=== PATIENT | female | born 1945 | race Caucasian/White ===

== ENCOUNTER 2017-09-14 09:36 | Emergency (ER) | payer MEDICARE, OTHER ==
[~2017-09-14] VITALS: Ht 165.1 cm; Wt 84.8 kg
[2017-09-14] MEDS ORDERED: METO-395 (09:57)
[2017-09-14] MEDS ORDERED: METF-478 (09:57)
[2017-09-14] MEDS ORDERED: SIMV20TA3 (09:57)
[2017-09-14 10:17] LABS: BASOPHILS % (AUTO) 0 % (0-10); EOSINOPHILS % (AUTO) 0 % (0-10); HEMATOCRIT 36 % (35-52); HEMOGLOBIN 11.6 G/DL (11.5-16.0); LYMPHOCYTES # (AUTO) 1.6 X 10^3 (1.0-4.0); LYMPHOCYTES % (AUTO) 24 % (12-44); MEAN CORPUSCULAR HEMOGLOBIN 28 PG (25-34); MEAN CORPUSCULAR HGB CONC 32 G/DL (32-36); MEAN CORPUSCULAR VOLUME 86 FL (80-99); MONOCYTES # (AUTO) 0.4 X 10^3 (0.0-1.0); MONOCYTES % (AUTO) 6 % (0-12); NEUTROPHILS # (AUTO) 4.6 X 10^3 (1.8-7.8); NEUTROPHILS % (AUTO) 70 % (42-75); PLATELET COUNT 216 10^3/uL (130-400); RED BLOOD COUNT 4.19 10^6/uL (4.35-5.85); RED CELL DISTRIBUTION WIDTH 14.6 % (10.0-14.5); WHITE BLOOD COUNT 6.6 10^3/uL (4.3-11.0)
[2017-09-14 10:22] LABS: PROTHROMBIN TIME PATIENT 13.3 SEC (12.2-14.7)
--- NOTE | 2017-09-14 10:25 | Diagnostic Imaging Report ---
EXAMINATION: Chest radiograph, portable AP view. DATE: 09/14/2017 at 1014 hours. INDICATION: 71-year-old female, chest pain. COMPARISON: None. FINDINGS: Heart size and mediastinal contours are unremarkable. There is no identified pneumothorax. There is no large pleural effusion. There is obscuration of visualization of left hemidiaphragm which potentially may relate to soft tissue overlap although left basilar airspace consolidation and/or small left pleural effusion would be difficult to exclude. Comparisons are not available to assess for potential stability. There is no otherwise noted potential focal airspace consolidation. IMPRESSION: 1. Obscuration of visualization of the left hemidiaphragm which potentially may relate to soft tissue overlap although left basilar airspace consolidation and/or small left effusion is difficult to exclude. Dedicated lateral view may be helpful for further assessment as needed. 2. No otherwise identified potential acute cardiopulmonary abnormality. Dictated by: Dictated on workstation # [id number]
[2017-09-14 10:31] LABS: ALANINE AMINOTRANSFERASE 11 U/L (0-55); ALBUMIN 4.1 GM/DL (3.2-4.5); ALKALINE PHOSPHATASE 77 U/L (40-136); BILIRUBIN,TOTAL 0.4 MG/DL (0.1-1.0); BUN/CREATININE RATIO 23; CALCIUM 9.2 MG/DL (8.5-10.1); CARBON DIOXIDE 24 MMOL/L (21-32); CHLORIDE 106 MMOL/L (98-107); CREATININE SERUM 0.79 MG/DL (0.60-1.30); GFR ESTIMATED > 60; GLUCOSE 193 MG/DL (70-105); MAGNESIUM 1.6 MG/DL (1.8-2.4); SODIUM 140 MMOL/L (135-145); TOTAL PROTEIN 6.6 GM/DL (6.4-8.2)
[2017-09-14] MEDS ORDERED: ANTACID SUSP 30 ML UDC (MYLANTA) ONE (10:31)
[2017-09-14] MEDS ORDERED: LIDOCAINE 2% VISCOUS 15 ML UDC ONE (10:31)
[2017-09-14 10:38] LABS: MYOGLOBIN SERUM 28.1 NG/ML (10.0-92.0)
--- NOTE | 2017-09-14 10:39 | ED Chest Pain ---
General Chief Complaint: Chest Wall/Rib Pain Stated Complaint: DIFF SWALLOWING/PAIN IN CHEST Nursing Triage Note: TO ROOM REPORTS TOOK AM MEDS ONSET OF PAIN WHEN SWALLOWING. WITH ONSET OF PAIN IN CHEST HEARD TIME DRINKING WATER. Nursing Sepsis Screen: No Definite Risk Source: patient, family Exam Limitations: no limitations History of Present Illness Date Seen by Provider: Sep 14, 2017 Time Seen by Provider: 10:36 Initial Comments This 71-year-old white female presents with an episode of chest pain that began this morning after she took her morning medications and I became stuck in her upper esophagus. Patient was complaining of severe sharp pain which radiated to both shoulders. The patient's pain has gradually diminished. The patient has had similar episodes in the past. She has required esophageal dilatation for esophageal stricture in the past. Patient saw a clothing man last week into [facility] where she lives. The evaluation demonstrated no evidence of cardiac disease or concern on the part of the clothing man. The patient denies hematemesis. She denies black or tarry stools. Allergies and Home Medications Allergies Coded Allergies: Penicillins (Verified Allergy, Unknown, 09/14/17) codeine (Verified Allergy, Unknown, 09/14/17) propoxyphene (Verified Allergy, Unknown, 09/14/17) Patient Home Medication List Home Medication List Reviewed: Yes Review of Systems Constitutional: No chills, No fever EENTM: No Symptoms Reported Respiratory: No Symptoms Reported Cardiovascular: See HPI, Chest Pain; Denies Irregular Heart Rate, Denies Palpitations Gastrointestinal: See HPI; Denies Abdomen Distended, Denies Diarrhea, Denies Vomiting; Other (patient has had super epigastric pain with her episode this morning.) Genitourinary: No Symptoms Reported Musculoskeletal: no symptoms reported Skin: no symptoms reported Psychiatric/Neurological: No Symptoms Reported Endocrine: No Symptoms Reported Hematologic/Lymphatic: No Symptoms Reported Past Xaxrtxn-Gcrqxm-Lijirq Hx Past Med/Social Hx: Reviewed Nursing Past Med/Soc Hx Patient Social History Alcohol Use: Occasionally Uses Recreational Drug Use: No Smoking Status: Never a Smoker Recent Foreign Travel: No Contact w/Someone Who Travel: No Recent Infectious Disease Expo: No Past Medical History Surgeries: No Respiratory: No Cardiac: Yes High Cholesterol, Hypertension, Irregular Heartbeat Neurological: No Gastrointestinal: Yes Gastroesophageal Reflux Endocrine: Yes Diabetes, Non-Insulin dep Psychosocial: No Physical Exam Vital Signs Vital Signs - First Documented 09/14/17 09:36 Temp 98.0 Pulse 82 Resp 18 B/P (MAP) 154/80 (104) O2 Delivery Room Air Capillary Refill : Less Than 3 Seconds General Appearance: No Apparent Distress, WD/WN HEENT: Normal ENT Inspection Neck: Full Range of Motion, Supple Respiratory: Chest Non Tender, Lungs Clear Cardiovascular: Regular Rate, Rhythm, No Murmur Gastrointestinal: Normal Bowel Sounds, Non Tender, Soft Neurologic/Psychiatric: Alert, Oriented x3, No Motor/Sensory Deficits, Normal Mood/Affect Skin: Normal Color, Warm/Dry Progress/Results/Core Measures Results/Orders Lab Results Laboratory Tests Test 09/14/17 09:47 Range/Units White Blood Count 6.6 4.3-11.0 10^3/uL Red Blood Count 4.19 L 4.35-5.85 10^6/uL Hemoglobin 11.6 11.5-16.0 G/DL Hematocrit 36 35-52 % Mean Corpuscular Volume 86 80-99 FL Mean Corpuscular Hemoglobin 28 25-34 PG Mean Corpuscular Hemoglobin Concent 32 32-36 G/DL Red Cell Distribution Width 14.6 H 10.0-14.5 % Platelet Count 216 130-400 10^3/uL Mean Platelet Volume 10.0 7.4-10.4 FL Neutrophils (%) (Auto) 70 42-75 % Lymphocytes (%) (Auto) 24 12-44 % Monocytes (%) (Auto) 6 0-12 % Eosinophils (%) (Auto) 0 0-10 % Basophils (%) (Auto) 0 0-10 % Neutrophils # (Auto) 4.6 1.8-7.8 X 10^3 Lymphocytes # (Auto) 1.6 1.0-4.0 X 10^3 Monocytes # (Auto) 0.4 0.0-1.0 X 10^3 Eosinophils # (Auto) 0.0 0.0-0.3 10^3/uL Basophils # (Auto) 0.0 0.0-0.1 10^3/uL Prothrombin Time 13.3 12.2-14.7 SEC INR Comment 1.0 0.8-1.4 Activated Partial Thromboplast Time 25 24-35 SEC Sodium Level 140 135-145 MMOL/L Potassium Level 4.0 3.6-5.0 MMOL/L Chloride Level 106 98-107 MMOL/L Carbon Dioxide Level 24 21-32 MMOL/L Anion Gap 10 5-14 MMOL/L Blood Urea Nitrogen 18 7-18 MG/DL Creatinine 0.79 0.60-1.30 MG/DL Estimat Glomerular Filtration Rate > 60 BUN/Creatinine Ratio 23 Glucose Level 193 H 70-105 MG/DL Calcium Level 9.2 8.5-10.1 MG/DL Magnesium Level 1.6 L 1.8-2.4 MG/DL Total Bilirubin 0.4 0.1-1.0 MG/DL Aspartate Amino Transf (AST/SGOT) 10 5-34 U/L Alanine Aminotransferase (ALT/SGPT) 11 0-55 U/L Alkaline Phosphatase 77 40-136 U/L Myoglobin 28.1 10.0-92.0 NG/ML Troponin I < 0.30 <0.30 NG/ML Total Protein 6.6 6.4-8.2 GM/DL Albumin 4.1 3.2-4.5 GM/DL My Orders Orders - ONOFRE, DOMINICK Blackwell MD Cbc With Automated Diff (09/14/17 09:58) Magnesium (09/14/17 09:58) Chest 1 View, Ap/Pa Only (09/14/17 09:58) Ekg Tracing (09/14/17 09:58) Cardiac Profile 1 (09/14/17 09:58) Comprehensive Metabolic Panel (09/14/17 09:58) Myoglobin Serum (09/14/17 09:58) Protime With Inr (09/14/17 09:58) Partial Thromboplastin Time (09/14/17 09:58) O2 (09/14/17 09:58) Monitor-Rhythm Ecg Trace Only (09/14/17 09:58) Saline Lock/Iv-Start (09/14/17 09:58) Antacid Suspension (Mylanta Suspension (09/14/17 10:31) Lidocaine 2% Viscous 15 Ml (Xylocaine Vi (09/14/17 10:31) Medications Given in ED Current Medications Medications Dose Ordered Sig/Hugo Route Start Time Stop Time Status Last Admin Dose Admin Al Hydrox/Mg Hydrox/Simethicone 30 ml STK-MED ONCE .ROUTE 09/14/17 10:31 09/14/17 10:33 DC 09/14/17 10:34 30 ML Lidocaine HCl 15 ml STK-MED ONCE .ROUTE 09/14/17 10:31 09/14/17 10:33 DC 09/14/17 10:34 15 ML Vital Signs/I&O 09/14/17 09:36 Temp 98.0 Pulse 82 Resp 18 B/P (MAP) 154/80 (104) O2 Delivery Room Air Blood Pressure Mean: 104 Progress Progress Note : Time: 11:44 Progress Note The patient's laboratory evaluation including chest x-ray, troponin, and EKG were unremarkable. Patient was given a GI cocktail with improvement in her residual discomfort. I discussed findings with the patient and her . I recommended close follow-up with both her primary care and her clothing man and peak. I think the patient ultimately however will need esophageal dilatation with her advertising display rotator. Departure Impression Primary Impression: Esophageal spasm Disposition: 01 HOME, SELF-CARE Condition: Improved Departure-Patient Inst. Decision time for Depature: 11:47 Referrals: NO,LOCAL PHYSICIAN (PCP) Primary Care Physician Patient Instructions: Acid Reflux (Gastroesophageal Reflux Disease), Adult (DC) Add. Discharge Instructions: Follow-up with your doctors and to be Including her advertising display rotator. Protonix as prescribed. Return if any problems or questions. All discharge instructions reviewed with patient and/or family. Voiced understanding. DOMINICK ADHIKARI MD Sep 14, 2017 10:39
[2017-09-14 11:54] VITALS: BP 115/68
--- OUTSIDE RECORDS SUMMARY | 2017-09-14 16:37 | XMS REPORT ---
Author Author SCARLET KEBEDE Organization [employer] Address Unknown Phone Unavailable Care Team Providers Care Grommet Machine Operator Name Role Phone SCARLET KEBEDE CP Unavailable Allergies No Known Allergies Problems Problem Type Condition Code Onset Dates Condition Status Problem DM II [Diabetes mellitus type II] 250.00 Active Problem HTN 401.9 Active Problem Hyperlipidemia 272.4 Active Problem Hyperlipidemia 272.4 Active Problem Impaired fasting glucose 790.21 Active Problem Hyperlipidemia 272.4 Active Problem Depression with anxiety 300.4 Active Medications Medication Code System Code Instructions Start Date End Date Status Dosage One touch ultra test strips NDC 0 - fingerstick tests once daily October 12, 2010 as directed Results No Known Results Summary Purpose [employer] Submission
--- OUTSIDE RECORDS SUMMARY | 2017-09-14 16:37 | XMS REPORT ---
Author Author SCARLET KEBEDE Organization [employer] Address Unknown Phone Unavailable Care Team Providers Care Medication Technician Name Role Phone SCARLET KEBEDE CP Unavailable Allergies No Known Allergies Problems Problem Type Condition ICD-9 Code Onset Dates Condition Status Assessment DM II [Diabetes mellitus type II] 250.00 Active Problem DM II [Diabetes mellitus type II] 250.00 Active Problem HTN 401.9 Active Problem Hyperlipidemia 272.4 Active Problem Hyperlipidemia 272.4 Active Problem Impaired fasting glucose 790.21 Active Problem Hyperlipidemia 272.4 Active Problem Depression with anxiety 300.4 Active Medications No Known Medications Results Name Result Date Reference Range Unit Abnormality Flag COMPREHENSIVE METABOLIC PANEL Summary Purpose [employer] Submission
--- OUTSIDE RECORDS SUMMARY | 2017-09-14 16:37 | XMS REPORT ---
Author Author SCARLET KEBEDE Organization [employer] Address Unknown Phone Unavailable Care Team Providers Care Merchandise Flow Team Leader Name Role Phone SCARLET KEBEDE CP Unavailable Allergies No Known Allergies Problems Problem Type Condition ICD-9 Code Onset Dates Condition Status Problem DM II [Diabetes mellitus type II] 250.00 Active Problem HTN 401.9 Active Problem Hyperlipidemia 272.4 Active Problem Hyperlipidemia 272.4 Active Problem Impaired fasting glucose 790.21 Active Problem Hyperlipidemia 272.4 Active Problem Depression with anxiety 300.4 Active Medications Medication Code System Code Instructions Start Date End Date Status Dosage metformin NDC 14885 500 mg orally 2 times a day September 10, 2010 2 tabs Results No Known Results Summary Purpose [employer] Submission
--- OUTSIDE RECORDS SUMMARY | 2017-09-14 16:37 | XMS REPORT ---
Author Author SCARLET KEBEDE [facility] [place] [employer] Address Unknown Phone Unavailable Care Team Providers Care Automat Car Attendant Name Role Phone SCARLET KEBEDE CP Unavailable Allergies No Known Allergies Problems Problem Type Condition ICD-9 Code Onset Dates Condition Status Problem DM II [Diabetes mellitus type II] 250.00 Active Problem HTN 401.9 Active Problem Hyperlipidemia 272.4 Active Problem Hyperlipidemia 272.4 Active Problem Impaired fasting glucose 790.21 Active Problem Hyperlipidemia 272.4 Active Problem Depression with anxiety 300.4 Active Medications No Known Medications Results No Known Results Summary Purpose [employer] Submission
--- OUTSIDE RECORDS SUMMARY | 2017-09-14 16:38 | XMS REPORT ---
Author Author ALIZE VOSS [facility] [employer] Address Unknown Phone Unavailable Care Team Providers Care Bell Person Name Role Phone ALIZE VOSS CP Unavailable Allergies, Adverse Reactions, Alerts Substance Reaction Event Type ASA ears burn and turn red Non Drug Allergy bee sting Info Not Available Non Drug Allergy Darvocet/Darvon palpitations, cold sweats Non Drug Allergy Codeine racing heart, faint Non Drug Allergy PCN hives Non Drug Allergy Problems Problem Type Condition ICD-9 Code Onset Dates Condition Status Assessment Hoarseness 784.49 Active Assessment Cough 786.2 Active Assessment URI, NOS 465.9 Active Problem DM II [Diabetes mellitus type II] 250.00 Active Problem HTN 401.9 Active Problem Hyperlipidemia 272.4 Active Problem Hyperlipidemia 272.4 Active Problem Impaired fasting glucose 790.21 Active Problem Hyperlipidemia 272.4 Active Problem Depression with anxiety 300.4 Active Medications Medication Code System Code Instructions Start Date End Date [place] [address] 40 mg orally once a day August 24, 2010 1 tab(s) [place] Flavored NDC 9846 325 mg-1 g-1.9 g orally every 4 hours as needed 2 tab([place]) [place] [address] 20MG orally once a day (at bedtime) 1 tab(s) Pepto-Bismol InstaCool ND 916843 262 mg chewed 4 times a day as needed 2 tab([place]) [place] [address] 20 mg orally once a day Feb 06, 2009 1 cap([place]) [place] [address] 2.5 mg orally once a day August 24, 2010 1 tab([place]) [place] [address] CFC free 90 mcg/inh inhaled 4 times a day Dec 02, 2014 2 puff([place] [address] 500 mg orally 2 times a day September 10, 2010 2 tabs One touch ultra test strips ND 0 - fingerstick tests once daily October 12, 2010 as directed Diltiazem Hydrochloride XR NDC 69840 240 mg/24 hours orally once a day August 24, 2010 1 cap(s) meclizine NDC 27057 25 mg orally 3 times a day as needed June 01, 2013 1 tab(s) hydrochlorothiazide NDC 05159 12.5 mg orally once a day as needed for swelling August 24, 2010 1/2 - 1 tab benzonatate NDC 32958 100 mg orally 3 times a day Dec 02, 2014 1-2 cap(s) Procedures Procedure Coding System Code Date Office Visit, estab pt, Level 3 CPT-4 13819 Dec 02, 2014 Vital Signs Date/Time: Dec 02, 2014 BMI 30.22 Index Weight 181.6 lbs Height 65 in Pain Scale 0 0-10 Blood Pressure Diastolic 60 mm Hg Blood Pressure Systolic 100 mm Hg Temperature 98.8 F Oximetry 96 % Results No Known Results Summary Purpose [employer]ClinicalWorks Submission
--- OUTSIDE RECORDS SUMMARY | 2017-09-14 16:38 | XMS REPORT ---
Author Author SCARLET KEBEDE Organization [employer] Address Unknown Phone Unavailable Care Team Providers Care Document Control Assistant Name Role Phone SCARLET KEBEDE CP Unavailable Allergies, Adverse Reactions, Alerts Substance Reaction Event Type bee sting Info Not Available Non Drug Allergy ASA ears burn and turn red Non Drug Allergy Darvocet/Darvon palpitations, cold sweats Non Drug Allergy Codeine racing heart, faint Non Drug Allergy PCN hives Non Drug Allergy Problems Problem Type Condition ICD-9 Code Onset Dates Condition Status Assessment DM II [Diabetes mellitus type II] 250.00 Active Assessment HTN 401.9 Active Assessment Depression with anxiety 300.4 Active Assessment Hyperlipidemia 272.4 Active Problem DM II [Diabetes mellitus type [...] once daily October 12, 2010 as directed metformin NDC 04068 500 mg orally 2 times a day September 10, 2010 2 tabs Pepto-Bismol InstaCool ND 365949 262 mg chewed 4 times a day as needed 2 tab([place] [address] 25 mg orally 3 times a day as needed June 01, 2013 1 tab([place] [address] 12.5 mg orally once a day as needed for swelling August 24, 2010 1/2 - 1 [place] [address] 40 mg orally once a day August 24, 2010 1 tab(s) simvastatin NDC 59214 20 mg orally once a day (at bedtime) Nov 14, 2008 1 tab(s) omeprazole NDC 32629 20 mg orally once a day Feb 06, 2009 1 cap(s) [place] Flavored NDC 9846 325 mg-1 g-1.9 g orally every 4 hours as needed 2 tab([place]) [place] [address] 240 mg/24 hours orally once a day August 24, 2010 1 cap(s) lisinopril NDC 50600 2.5 mg orally once a day August 24, 2010 1 tab(s) Procedures Procedure Coding System Code Date Office Visit, estab pt, Level 4 CPT-4 28417 October 14, 2014 Vital Signs Date/Time: October 14, 2014 BMI 29.85 Index Weight 179.4 lbs Height 65 in Pain Scale 0 0-10 Blood Pressure Diastolic 70 mm Hg Blood Pressure Systolic 114 mm Hg Results No Known Results Summary Purpose [employer]ClinicalWorks Submission
--- OUTSIDE RECORDS SUMMARY | 2017-09-14 16:38 | XMS REPORT ---
Author Author SCARLET KEBEDE Organization [employer] Address Unknown Phone Unavailable Care Team Providers Care Maintenance Plumber Name Role Phone SCARLET KEBEDE CP Unavailable Allergies, Adverse Reactions, Alerts Substance Reaction Event Type bee sting Info Not Available Non Drug Allergy ASA ears burn and turn red Non Drug Allergy Darvocet/Darvon palpitations, cold sweats Non Drug Allergy Codeine racing heart, faint Non Drug Allergy PCN hives Non Drug Allergy Problems Problem Type Condition Code Onset Dates Condition Status Assessment Hyperlipidemia, unspecified E78.5 Active Assessment Type 2 diabetes mellitus without complications E11.9 Active Assessment Essential (primary) hypertension I10 Active Problem DM II [Diabetes mellitus type II] 250.00 Active Problem HTN 401.9 Active Problem Hyperlipidemia 272.4 Active Problem Hyperlipidemia 272.4 Active Problem Impaired fasting glucose 790.21 Active Problem Hyperlipidemia 272.4 Active Problem Depression with anxiety 300.4 Active Medications Medication Code System Code Instructions Start Date End [place] [address] 12.5 mg orally once a day as needed for swelling August 24, 2010 1/2 - 1 [place] [address] 40 mg orally once a day August 24, 2010 1 tab([place] [address] 25 mg orally 3 times a day as needed June 01, 2013 1 tab(s) [place] [address] 240 mg/24 hours orally once a day August 24, 2010 1 cap(s) One touch ultra test strips ND 0 - fingerstick tests once daily October 12, 2010 as directed Pepto-Bismol InstaCool ND 257035 262 mg chewed 4 times a day as needed 2 tab([place] [address] 2.5 mg orally once a day August 24, 2010 1 tab([place]) [place] [address] 20 mg orally once a day (at bedtime) Jan 13, 2015 1 tab([place]) [place] [address] 20MG orally once a day (at bedtime) 1 tab(s) omeprazole NDC 17527 20 mg orally once a day Feb 06, 2009 1 cap(s) metformin NDC 84249 500 mg orally 2 times a day September 10, 2010 2 tabs Procedures Procedure Coding System Code Date FLU VAC NO PRSV 4 GERRY 3 YRS+ CPT-4 59351 Jan 13, 2015 Office Visit, estab pt, Level 4 CPT-4 42647 Jan 13, 2015 PNEUMOCOCCAL-CONJUGATE 1 PREVNAR 13 CPT-4 23116 Jan 13, 2015 Vital Signs Date/Time: Jan 13, 2015 BMI 30.75 Index Weight 184.8 lbs Height 65 in Pain Scale 0 0-10 Blood Pressure Diastolic 60 mm Hg Blood Pressure Systolic 114 mm Hg Results No Known Results Immunizations Vaccine Administration Date PCV-13 (Prevnar) Jan 13, 2015 Influenza- 3+ IIV4 Pfree Jan 13, 2015 Summary Purpose eClinicalWorks Submission
--- OUTSIDE RECORDS SUMMARY | 2017-09-14 16:38 | XMS REPORT ---
Author Author SCARLET KEBEDE Organization [employer] Address Unknown Phone Unavailable Care Team Providers Care Boiler Room Helper Name Role Phone SCARLET KEBEDE CP Unavailable [...] Instructions Start Date End Date Status Dosage Keflex NDC 1271 500 mg orally 3 times a day Dec 12, 2014 1 cap(s) Results No Known Results Summary Purpose [employer]ClinicalWorks Submission
--- OUTSIDE RECORDS SUMMARY | 2017-09-14 16:38 | XMS REPORT ---
Author Author SCARLET KEBEDE Organization [employer] Address Unknown Phone Unavailable Care Team Providers Care Lead Simulation Modeling Engineer Name Role Phone SCARLET KEBEDE CP Unavailable Allergies, Adverse Reactions, Alerts Substance Reaction Event Type bee sting Info Not Available Non Drug Allergy ASA ears burn and turn red Non Drug Allergy Darvocet/Darvon palpitations, cold sweats Non Drug Allergy Codeine racing heart, faint Non Drug Allergy PCN hives Non Drug Allergy Problems Problem Type Condition ICD-9 Code Onset Dates Condition Status Assessment Hyperlipidemia 272.4 Active Assessment HTN 401.9 Active Assessment DM II [Diabetes mellitus type II] 250.00 Active Assessment Plantar fasciitis 728.71 Active Problem DM II [Diabetes mellitus type II] 250.00 Active Problem HTN 401.9 Active Problem Hyperlipidemia 272.4 Active Problem Hyperlipidemia 272.4 Active Problem Impaired fasting glucose 790.21 Active Problem Hyperlipidemia 272.4 Active Problem Depression with anxiety 300.4 Active Medications Medication Code System Code Instructions Start Date End Date [place] [address] 12.5 mg orally once a day as needed for swelling August 24, 2010 1/2 - 1 [place] [address] 2.5 mg orally once a day August 24, 2010 1 tab(s) One touch ultra test strips ND 0 - fingerstick tests once daily October 12, 2010 [place] [address] 25 mg orally 3 times a day as needed June 01, 2013 1 tab([place] [address] 500 mg orally 2 times a day September 10, 2010 2 [place] [address] 20 mg orally once a day (at bedtime) Nov 14, 2008 1 tab(s) omeprazole NDC 29143 20 mg orally once a day Feb 06, 2009 1 cap(s) Pepto-Bismol InstaCool ND 595562 262 mg chewed 4 times a day 2 tab(s) [place] Flavored NDC 9846 325 mg-1 g-1.9 g orally every 4 hours 2 tab([place]) [place] [address] 40 mg orally once a day August 24, 2010 1 tab(s) Diltiazem Hydrochloride XR [facility] 11606 240 mg/24 hours orally once a day August 24, 2010 1 cap(s) Procedures Procedure Coding System Code Date Office Visit, estab pt, Level 4 CPT-4 63677 June 21, 2014 Vital Signs Date/Time: June 21, 2014 BMI 30.92 Index Weight 185.8 lbs Height 65 in Pain Scale 3 0-10 Blood Pressure Diastolic 68 mm Hg Blood Pressure Systolic 114 mm Hg Results No Known Results Summary Purpose eClinicalWorks Submission
--- OUTSIDE RECORDS SUMMARY | 2017-09-14 16:38 | XMS REPORT ---
Author Author SCARLET KEBEDE Organization [employer] Address Unknown Phone Unavailable Care Team Providers Care Patient Transportation Driver Name Role Phone SCARLET KEBEDE CP Unavailable [...] Instructions Start Date End Date Status Dosage Diltiazem Hydrochloride XR [facility] 77724 240 mg/24 hours orally once a day August 24, 2010 1 cap(s) Results No Known Results Summary Purpose [employer]ClinicalWorks Submission
--- OUTSIDE RECORDS SUMMARY | 2017-09-14 16:39 | XMS REPORT | Continuity of Care Document ---
Author Author [facility] Organization [facility] Address Unknown Phone Unavailable Allergies Active Description Code Type Severity Reaction Onset Reported/Identified Relationship to Patient Clinical Status Yes ASPIRIN 56998 DRUG INGREDI N/A Other 10/24/2015 10/24/2015 Yes BEE VENOM 65191 DRUG INGREDI N/ A Swelling 10/24/2015 10/24/2015 Yes CODEINE 52754 DRUG INGREDI Low Other 10/24/2015 10/24/2015 Yes PROPOXYPHENE 76283 DRUG INGREDI N/A Other 10/24/2015 10/24/2015 Yes CODEINE 3888 DRUG INGREDI High Anaphylaxis 10/24/2015 10/24/2015 Yes CODEINE 3888 DRUG INGREDI High Other 10/24/2015 10/24/2015 Medications Medication Packaging Start Date Stop Date Route Dosage Sig simvastatin (ZOCOR) 20 mg tablet -- TAKE 1 TABLET AT BEDTIME tablet 07/26/2016 RABEprazole (ACIPHEX) 20 mg delayed release tablet -- Take 20 mg by mouth once a day tablet 08/16/2016 Oral DAILY DAILY RABEprazole (ACIPHEX) 20 mg delayed release tablet -- TAKE 1 TABLET ONCE DAILY tablet 11/05/2016 simvastatin (ZOCOR) 20 mg tablet -- TAKE 1 TABLET AT BEDTIME tablet 12/19/2016 gabapentin (NEURONTIN) 100 mg capsule -- Take 100 mg by mouth three times a day capsule 02/17/2017 Oral 3 TIMES A DAY 3 TIMES A DAY FLUoxetine (PROZAC) 20 mg capsule -- Take 20 mg by mouth once a day capsule 02/17/2017 Oral DAILY DAILY gabapentin (NEURONTIN) 100 mg capsule -- TAKE 1 CAPSULE BY MOUTH THREE TIMES DAILY capsule 04/09/2017 gabapentin (NEURONTIN) 100 mg capsule -- TAKE 1 CAPSULE BY MOUTH THREE TIMES DAILY capsule 05/08/2017 metFORMIN XR (FORTAMET) 500 mg XR tablet -- Take 1,000 mg by mouth two times a day with meals tablet 05/26/2017 Oral 2 TIMES A DAY WITH MEALS 2 TIMES A DAY WITH MEALS potassium chloride (K-DUR) 10 mEq SR tablet -- Take 20 mEq by mouth once a day tablet 05/26/2017 Oral DAILY DAILY ONETOUCH ULTRA TEST glucose strips -- USE TO TEST ONCE DAILY each 06/05/2017 RABEprazole (ACIPHEX) 20 mg delayed release tablet -- TAKE 1 TABLET ONCE DAILY tablet 06/24/2017 dilTIAZem (DILACOR XR) 240 mg XR capsule -- Take 240 mg by mouth once a day capsule 06/24/2017 Oral DAILY DAILY FLUoxetine (PROZAC) 20 mg capsule -- TAKE 1 CAPSULE BY MOUTH EVERY DAY capsule 08/08/2017 furosemide (LASIX) 20 mg tablet -- Qd prn edema tablet 08/21/2017 Problems Date Dx Coded Attending Type Code Diagnosis Diagnosed By 01/13/2015July, SCARLET Zhong E11.9 Type 2 diabetes mellitus without complications 01/13/2015July, SCARLET Zhong E78.5 Hyperlipidemia, unspecified 01/13/2015July, SCARLET Zhong I10 Essential (primary) hypertension 01/13/2015July, SCARLET Zhong E11.9 Type 2 diabetes mellitus without complications 01/13/2015July, SCARLET Zhong E78.5 Hyperlipidemia, unspecified 01/13/2015July, SCARLET Zhong I10 Essential (primary) hypertension 04/20/2015July, SCARLET Zhong E11.9 Type 2 diabetes mellitus without complications 04/20/2015July, SCARLET Zhong E11.9 Type 2 diabetes mellitus without complications 04/20/2015July, SCARLET Zhong E11.9 Type 2 diabetes mellitus without complications 07/24/2015 WORKING E11.9 Type 2 diabetes mellitus without complications ([facility]) 07/24/2015 WORKING I10 Essential (primary) hypertension 07/24/2015 WORKING Z12.11 Encounter for screening for malignant neoplasm of colon 07/24/2015 WORKING Z87.898 Personal history of other specified conditions 07/24/2015July, SCARLET Luevano WORKING E11.9 Type 2 diabetes mellitus without complications ([facility]) 08/09/2015July, SCARLET Luevano ADMITTING Z12.11 Encounter for screening for malignant neoplasm of colon 08/17/2015 WORKING E11.9 Type 2 diabetes mellitus without complications ([facility]) 08/17/2015 WORKING I10 Essential (primary) hypertension 08/17/2015 WORKING J40 Bronchitis , not specified as acute or chronic 12/06/2015 WORKING E11.9 Type 2 diabetes mellitus without complications ([facility]) 12/06/2015 WORKING I10 Essential (primary) hypertension 12/06/2015 WORKING Z87.898 Personal history of other specified conditions 12/06/2015 MAY, SCARLET Luevano WORKING E11.9 Type 2 diabetes mellitus without complications ([facility]) 03/13/2016 WORKING E11.9 Type 2 diabetes mellitus without complications ([facility]) 03/13/2016 WORKING Z00.00 Encounter for general adult medical examination without abnormal findings 03/13/2016 WORKING Z23 Encounter for immunization 03/13/2016July, SCARLET Luevano WORKING E11.9 Type 2 diabetes mellitus without complications ([facility]) 03/13/2016July, SCARLET Luevano WORKING Z00.00 Encounter for general adult medical examination without abnormal findings 06/12/2016 WORKING E11.9 Type 2 diabetes mellitus without complications ([facility]) 06/12/2016 WORKING I10 Essential (primary) hypertension 06/12/2016 WORKING K21.9 Gastro- esophageal reflux disease without esophagitis 06/12/2016 WORKING R53.83 Other fatigue 06/12/2016 MAY, SCARLET Luevano WORKING E11.9 Type 2 diabetes mellitus without complications ([facility]) 06/12/2016July, SCARLET Luevano WORKING R53.83 Other fatigue 06/20/2016July, SCARLET Luevano ADMITTING K21.9 Gastro-esophageal reflux disease without esophagitis 07/17/2016July, SCARLET Luevano WORKING N95.1 Menopausal and female climacteric states 07/17/2016July, SCARLET Luevano WORKING Z12.31 Encounter for screening mammogram for malignant neoplasm of breast 02/17/2017July, SCARLET Luevano WORKING E11.9 Type 2 diabetes mellitus without complications ([facility]) 02/17/2017July, SCARLET Luevano WORKING I10 Essential (primary) hypertension 02/17/2017July, SCARLET Luevano WORKING R53.83 Other fatigue 02/17/2017 WORKING E11.9 Type 2 diabetes mellitus without complications ([facility]) 02/17/2017 WORKING F32.9 Major depressive disorder, single episode, unspecified 02/17/2017 WORKING G62.9 Polyneuropathy, unspecified 02/17/2017 WORKING I10 Essential (primary) hypertension 02/17/2017 WORKING R53.83 Other fatigue 03/17/2017 ADMITTING 274 Procedure 03/17/2017 WORKING I10 Essential (primary) hypertension 03/17/2017 WORKING L82.1 Other seborrheic keratosis 05/21/2017 MAY, SCARLET Luevano WORKING D64.9 Anemia, unspecified 05/26/2017 WORKING E11.9 Type 2 diabetes mellitus without complications ([facility]) 05/26/2017 WORKING E87.6 Hypokalemia 05/26/2017 WORKING R06.00 Dyspnea , unspecified 06/02/2017July, SCARLET Luevano WORKING R06.00 Dyspnea, unspecified 06/23/2017 WORKING I10 Essential (primary) hypertension 06/23/2017 WORKING R06.09 Other forms of dyspnea 06/23/2017 WORKING R53.83 Other fatigue 07/07/2017July, SCARLET Luevano WORKING R06.09 Other forms of dyspnea 07/14/2017 WORKING E11.9 Type 2 diabetes mellitus without complications ([facility]) 07/14/2017 WORKING I10 Essential (primary) hypertension 07/14/2017 WORKING R06.09 Other forms of dyspnea Procedures Code Description Performed By Performed On CBC CBC WITH DIFF 01/13/2015 CMETPP COMPREHENSIVE METABOLIC PANEL 01/13/2015 HBA1C HEMOGLOBIN A1C 01/13/2015 LIPRLX LIPID PANEL W/REFLEX LDL 01/13/2015 TSHR TSH WITH REFLEX TO FREE T4 01/13/2015 CBC CBC WITH DIFF 04/20/2015 CMETPP COMPREHENSIVE METABOLIC PANEL 04/20/2015 HBA1C HEMOGLOBIN A1C 04/20/2015 CBC CBC WITH DIFF 04/20/2015 CMETPP COMPREHENSIVE METABOLIC PANEL 04/20/2015 HBA1C HEMOGLOBIN A1C 04/20/2015 CMETP COMPREHENSIVE METABOLIC PANEL 07/24/2015 HBA1C HEMOGLOBIN A1C 07/24/2015 COL COLONOSCOPY 08/09/2015 GLUPOC GLUCOSE POCT 08/09/2015 CBC CBC WITH DIFFERENTIAL 12/06/2015 CMEP COMPREHENSIVE METABOLIC PANEL 12/06/2015 HBA1C HEMOGLOBIN A1C 12/06/2015 LIPIDM LIPID PANEL WITH DIRECT MEASURED LDL 12/06/2015 HBA1C HEMOGLOBIN A1C 03/13/2016 HBCTJM HEPATITIS B CORE, TOTAL 03/13/2016 HCVB HEPATITIS C ANTIBODY QUAL 03/13/2016 MISCOR MISCELLANEOUS SENDOUT REFRIGERATED 03/13/2016 Results Test Result Range COMPREHENSIVE METABOLIC PANEL - 04/08/14 10:43 POTASSIUM 4.0 mmol/L 3.5-5.1 CALCIUM 9.5 mg/dL 8.6-10.6 GLUCOSE 113 mg/dL 80-115 BUN 19 mg/dL 8-22 CREATININE 0.7 mg/dL 0.6-1.1 SODIUM 141 mmol/L 136-145 CHLORIDE 106 mmol/L 98-110 CO2 23 mmol/L 22-29 GFR ESTIMATED NOT AFR/AM >60 GFR ESTIMATED IF AFR/AM >60 ALT-SGPT 10 U/L 0-55 AST-SGOT 10 U/L 5-34 TOTAL PROTEIN,SERUM 6.9 g/dL 6-8.3 ALBUMIN 4.3 g/dL 3.6-5.3 ALKALINE PHOSPHATASE 78 U/L 40-150 TOTAL BILIRUBIN 0.4 mg/dL 0.2-1.2 ANION GAP 12 5-15 GLOBULIN, CALCULATED 2.6 g/dL A/G RATIO 1.7 ratio 1-1.8 LIPID PANEL W/REFLEX LDL - 04/08/14 10:43 TRIGLYCERIDES 95 mg/dL 20-170 CHOLESTEROL 165 mg/dL 140-200 HDL 52 mg/dL 35-60 LDL 94 mg/dL 60-130 CBC WITH DIFF - 04/08/14 10:43 WBC 8.6 10*3/uL 4.0-10.8 RBC 4.38 10*6/uL 4.20-5.40 HGB 12.5 g/dL 12.0-16.0 HCT 37.5 % 37-47 MCV 86 fL 81-99 MCH 29 pg 26-34 MCHC 33 g/dL 31-37 PLATELET COUNT 246 10*3/uL 150-400 RDWCV 14.0 % 11.5-14.5 DIFF TYPE AUTOMATED DIFF NEUTROPHIL % 69 % 36-66 LYMPHOCYTE % 25 % 24-44 MONOCYTE % 6 % 1-10 EOSINOPHIL % 0 % 0-6 BASOPHIL % 0 % 0-2 ABS. NEUTROPHILS 5.9 10*3/uL 1.55-7.13 ABS. LYMPHOCYTES 2.2 10*3/uL 1.0-4.8 ABS. MONOCYTES 0.5 10*3/uL 0.4-1.08 ABS. EOSINOPHILS 0.0 10*3/uL 0.0-0.65 ABS. BASOPHILS 0.0 10*3/uL 0.0-0.11 ABSOLUTE NUCLEATED RBC 0.20 10*3/uL MICROALBUMIN QUALITATIVE - 04/08/14 10:43 MICROALBUMIN QUALITATIVE NEGATIVE NEGATIVE HEMOGLOBIN A1C - 04/08/14 10:43 HEMOGLOBIN A1C 6.0 % <5.6 ESTIMATED AVERAGE GLUCOSE 126 mg/dL COMPREHENSIVE METABOLIC PANEL - 09/21/14 07:54 POTASSIUM 4.3 mmol/L 3.5-5.1 CALCIUM 9.9 mg/dL 8.6-10.6 GLUCOSE 118 mg/dL 80-115 BUN 18 mg/dL 8-22 CREATININE 0.7 mg/dL 0.6-1.1 SODIUM 140 mmol/L 136-145 CHLORIDE 105 mmol/L 98-110 CO2 25 mmol/L 22-29 GFR ESTIMATED NOT AFR/AM >60 GFR ESTIMATED IF AFR/AM >60 ALT-SGPT 11 U/L 0-55 AST-SGOT 12 U/L 5-34 TOTAL PROTEIN,SERUM 6.9 g/dL 6-8.3 ALBUMIN 4.4 g/dL 3.6-5.3 ALKALINE PHOSPHATASE 75 U/L 40-150 TOTAL BILIRUBIN 0.5 mg/dL 0.2-1.2 ANION GAP 10 5-15 GLOBULIN, CALCULATED 2.5 g/dL A/G RATIO 1.8 ratio 1-1.8 HEMOGLOBIN A1C - 09/21/14 07:54 HEMOGLOBIN A1C 5.5 % <5.6 ESTIMATED AVERAGE GLUCOSE 111 mg/dL CBC WITH DIFF - 01/13/15 08:56 WBC 9.9 10*3/uL 4.0-10.8 RBC 4.35 10*6/uL 4.20-5.40 HGB 12.2 g/dL 12.0-16.0 HCT 37.8 % 37-47 MCV 87 fL 81-99 MCH 28 pg 26-34 MCHC 32 g/dL 31-37 PLATELET COUNT 239 10*3/uL 150-400 RDWCV 14.3 % 11.5-14.5 DIFF TYPE MANUAL DIFF SEG NEUTROPHILS 63 % 36-66 LYMPHOCYTES 31 % 24-44 NEUTROPHILS, ABSOLUTE 6.2 10*3/uL 1.55-7.13 LYMPHOCYTES, ABSOLUTE 3.2 10*3/uL 1.0-4.8 VARIANT LYMPHS PERCENT 1 % PLATELET ESTIMATE SEE NOTES MONOCYTES 5 % 1-10 MONOCYTES, ABSOLUTE 0.5 10*3/uL 0.4-1.08 COMPREHENSIVE METABOLIC PANEL - 01/13/15 08:56 POTASSIUM 4.2 mmol/L 3.5-5.1 CALCIUM 9.5 mg/dL 8.6-10.6 GLUCOSE 115 mg/dL 80-115 BUN 16 mg/dL 8-22 CREATININE 0.8 mg/dL 0.6-1.1 SODIUM 141 mmol/L 136-145 CHLORIDE 104 mmol/L 98-110 CO2 26 mmol/L 22-29 GFR ESTIMATED NOT AFR/AM >60 GFR ESTIMATED IF AFR/AM >60 ALT-SGPT 9 U/L 0-55 AST-SGOT 9 U/L 5-34 TOTAL PROTEIN,SERUM 6.8 g/dL 6-8.3 ALBUMIN 4.2 g/dL 3.6-5.3 ALKALINE PHOSPHATASE 85 U/L 40-150 TOTAL BILIRUBIN 0.5 mg/dL 0.2-1.2 ANION GAP 11 5-15 GLOBULIN, CALCULATED 2.6 g/dL A/G RATIO 1.6 ratio 1-1.8 LIPID PANEL W/REFLEX LDL - 01/13/15 08:56 TRIGLYCERIDES 119 mg/dL 20-170 CHOLESTEROL 135 mg/dL 140-200 HDL 47 mg/dL 35-60 LDL 64 mg/dL 60-130 TSH WITH REFLEX TO FREE T4 - 01/13/15 08:56 TSH 2.02 m[iU]/mL 0.35-4.90 HEMOGLOBIN A1C - 01/13/15 08:56 HEMOGLOBIN A1C 5.4 % <5.6 ESTIMATED AVERAGE GLUCOSE 108 mg/dL CBC WITH DIFF - 04/20/15 09:13 WBC 7.2 10*3/uL 4.0-10.8 RBC 4.46 10*6/uL 4.20-5.40 HGB 11.9 g/dL 12.0-16.0 HCT 38.0 % 37-47 MCV 85 fL 81-99 MCH 27 pg 26-34 MCHC 31 g/dL 31-37 PLATELET COUNT 228 10*3/uL 150-400 RDWCV 15.1 % 11.5-14.5 DIFF TYPE AUTOMATED DIFF NEUTROPHIL % 68 % 36-66 LYMPHOCYTE % 26 % 24-44 MONOCYTE % 6 % 1-10 EOSINOPHIL % 0 % 0-6 BASOPHIL % 1 % 0-2 ABS. NEUTROPHILS 4.9 10*3/uL 1.55-7.13 ABS. LYMPHOCYTES 1.9 10*3/uL 1.0-4.8 ABS. MONOCYTES 0.4 10*3/uL 0.4-1.08 ABS. EOSINOPHILS 0.0 10*3/uL 0.0-0.65 ABS. BASOPHILS 0.0 10*3/uL 0.0-0.11 ABSOLUTE NUCLEATED RBC 0.00 10*3/uL HEMOGLOBIN A1C - 04/20/15 09:13 HEMOGLOBIN A1C 5.5 % <5.6 ESTIMATED AVERAGE GLUCOSE 111 mg/dL COMPREHENSIVE METABOLIC PANEL - 04/20/15 09:13 POTASSIUM 4.1 mmol/L 3.5-5.1 CALCIUM 9.6 mg/dL 8.6-10.6 GLUCOSE 123 mg/dL 80-115 BUN 14 mg/dL 8-22 CREATININE 0.7 mg/dL 0.6-1.1 SODIUM 142 mmol/L 136-145 CHLORIDE 104 mmol/L 98-110 CO2 30 mmol/L 22- GFR ESTIMATED NOT AFR/AM >60 GFR ESTIMATED IF AFR/AM >60 ALT-SGPT 10 U/L 0-55 AST-SGOT 11 U/L 5-34 TOTAL PROTEIN,SERUM 6.6 g/dL 6-8.3 ALBUMIN 4.4 g/dL 3.6-5.3 ALKALINE PHOSPHATASE 78 U/L 40-150 TOTAL BILIRUBIN 0.4 mg/dL 0.2-1.2 ANION GAP 8 5-15 GLOBULIN, CALCULATED 2.2 g/dL A/G RATIO 2.0 ratio 1-1.8 COMPREHENSIVE METABOLIC PANEL - 07/24/15 09:36 POTASSIUM 4.1 mmol/L 3.5-5.1 CALCIUM 9.3 mg/dL 8.6-10.6 GLUCOSE 114 mg/dL 80-115 BUN 15 mg/dL 8-22 CREATININE 0.8 mg/dL 0.6-1.1 SODIUM 139 mmol/L 136-145 CHLORIDE 104 mmol/L 98-110 CO2 25 mmol/L GFR ESTIMATED NOT AFR/AM >60 GFR ESTIMATED IF AFR/AM >60 ALT-SGPT 12 U/L 0-55 AST-SGOT 14 U/L 5-34 TOTAL PROTEIN,SERUM 6.6 g/dL 6-8.3 ALBUMIN 4.5 g/dL 3.6-5.3 ALKALINE PHOSPHATASE 71 U/L 40-150 TOTAL BILIRUBIN 0.4 mg/dL 0.2-1.2 ANION GAP 10 5-15 GLOBULIN, CALCULATED 2.1 g/dL A/G RATIO 2.1 ratio 1-1.8 HEMOGLOBIN A1C - 07/24/15 09:36 HEMOGLOBIN A1C 5.5 % <5.6 ESTIMATED AVERAGE GLUCOSE 111 mg/dL GLUCOSE POCT - 08/09/15 07:42 GLUCOSE BY METER 125 mg/dL 70-115 GLUCOSE POCT - 08/09/15 09:59 GLUCOSE BY METER 122 mg/dL 70-115 CBC WITH DIFF - 12/06/15 11:50 WBC 9.6 10*3/uL 4.0-10.8 RBC 4.24 10*6/uL 4.20-5.40 HGB 12.1 g/dL 12.0-16.0 HCT 37.5 % 37.0-47.0 MCV 88 fL 81-99 MCH 29 pg 26.0-34.0 MCHC 32.3 g/dL 31.0-37.0 PLATELET COUNT 273 10*3/uL 150-400 RDWCV 13.9 % 11.5-14.5 DIFF TYPE AUTOMATED DIFF NEUTROPHIL % 69.4 % 36.0-66.0 LYMPHOCYTE % 24.0 % 24.0-44.0 MONOCYTE % 5.8 % 1.0-10.0 EOSINOPHIL % 0.1 % 0.0-6.0 BASOPHIL % 0.3 % 0.0-2.0 ABS. NEUTROPHILS 6.60 10*3/uL 1.55-7.13 ABS. LYMPHOCYTES 2.30 10*3/uL 1.00-4.80 ABS. MONOCYTES 0.60 10*3/uL 0.40-1.08 ABS. EOSINOPHILS 0.00 10*3/uL 0.00-0.65 ABS. BASOPHILS 0.00 10*3/uL 0.00-0.11 ABSOLUTE NUCLEATED RBC 0.00 10*3/uL 0.00 PERCENT NUCLEATED RBC 0.0 % 0.0 MPV 10.6 fL 9.4-12.3 RDW STANDARD DEVIATION 45.1 fL 36.4-46.3 GRANULOCYTE, IMMATURE, ABSOLUTE 0.0 10*3/uL 0.0-0.1 GRANULOCYTES, IMMATURE, PERCENT 0.4 % 0.0-0.5 COMPREHENSIVE METABOLIC PANEL - 12/06/15 11:50 POTASSIUM 3.9 mmol/L 3.5-5.1 CALCIUM 9.1 mg/dL 8.5-10.0 GLUCOSE 92 mg/dL 80-115 BUN 17 mg/dL 7-18 CREATININE 0.72 mg/dL 0.55-1.30 SODIUM 141 mmol/L 136-145 CHLORIDE 104 mmol/L 98-107 CO2 26 mmol/L 21-32 GFR ESTIMATED NOT AFR/AM >60 GFR ESTIMATED IF AFR/AM >60 ALT-SGPT 18 U/L 13-56 AST-SGOT 12 U/L 15-37 TOTAL PROTEIN,SERUM 6.8 g/dL 6.0-8.3 ALBUMIN 3.8 g/dL 3.4-5.0 ALKALINE PHOSPHATASE 80 U/L 45-117 TOTAL BILIRUBIN 0.4 mg/dL 0.2-1.0 ANION GAP 11 5-15 GLOBULIN, CALCULATED 3.0 g/dL A/G RATIO 1.3 ratio 1-1.8 LIPID PANEL WITH DIRECT MEASURED LDL - 12/06/15 11:50 TRIGLYCERIDES 97 mg/dL 20-170 CHOLESTEROL 130 mg/dL <201 HDL 52 mg/dL 40-60 LOW DENSITY LIPOPROTEIN, DIRECT 65 mg/dL <100 HEMOGLOBIN A1C - 12/06/15 11:50 HEMOGLOBIN A1C 5.9 % <5.6 ESTIMATED AVERAGE GLUCOSE 123 mg/dL HEMOGLOBIN A1C - 03/13/16 11:25 HEMOGLOBIN A1C 5.9 % <5.6 ESTIMATED AVERAGE GLUCOSE 123 mg/dL HEPATITIS B CORE, TOTAL - 03/13/16 11:25 HEPATITIS B CORE TOTAL SENT TO [facility] HEPATITIS C ANTIBODY QUAL - 03/13/16 11:25 HEPATITIS C AB NON-REACTIVE MISCELLANEOUS SENDOUT REFRIGERATED - 03/13/16 11:25 TEST NAME REF TEST RESULTS SEE NOTE CBC WITH DIFF - 06/12/16 10:25 WBC 7.79 10*3/uL 4.00-10.80 RBC 4.45 10*6/uL 4.20-5.40 HGB 12.5 g/dL 12.0-16.0 HCT 39.0 % 37.0-47.0 MCV 88 fL 81-99 MCH 28 pg 26.0-34.0 MCHC 32.1 g/dL 31.0-37.0 PLATELET COUNT 250 10*3/uL 150-400 RDWCV 13.9 % 11.5-14.5 DIFF TYPE AUTOMATED DIFF NEUTROPHIL % 66.1 % 36.0-66.0 LYMPHOCYTE % 27.3 % 24.0-44.0 MONOCYTE % 5.8 % 1.0-10.0 EOSINOPHIL % 0.0 % 0.0-6.0 BASOPHIL % 0.4 % 0.0-2.0 ABS. NEUTROPHILS 5.15 10*3/uL 1.55-7.13 ABS. LYMPHOCYTES 2.13 10*3/uL 1.00-4.80 ABS. MONOCYTES 0.45 10*3/uL 0.40-1.08 ABS. EOSINOPHILS 0.00 10*3/uL 0.00-0.65 ABS. BASOPHILS 0.03 10*3/uL 0.00-0.11 ABSOLUTE NUCLEATED RBC 0.00 10*3/uL 0.00 PERCENT NUCLEATED RBC 0.0 % 0.0 MPV 10.4 fL 9.4-12.3 RDW STANDARD DEVIATION 44.1 fL 36.4-46.3 GRANULOCYTE, IMMATURE, ABSOLUTE 0.0 10*3/uL 0.0-0.1 GRANULOCYTES, IMMATURE, PERCENT 0.4 % 0.0-0.5 HEMOGLOBIN A1C - 06/12/16 10:25 HEMOGLOBIN A1C 5.9 % <5.6 ESTIMATED AVERAGE GLUCOSE 123 mg/dL COMPREHENSIVE METABOLIC PANEL - 06/12/16 10:25 POTASSIUM 4.0 mmol/L 3.5-5.1 CALCIUM 8.7 mg/dL 8.5-10.0 GLUCOSE 110 mg/dL 80-115 BUN 15 mg/dL 7-18 CREATININE 0.73 mg/dL 0.55-1.30 SODIUM 143 mmol/L 136-145 CHLORIDE 107 mmol/L 98-107 CO2 26 mmol/L 21-32 GFR ESTIMATED NOT AFR/AM >60 GFR ESTIMATED IF AFR/AM >60 ALT-SGPT 18 U/L 13-56 AST-SGOT 8 U/L 15-37 TOTAL PROTEIN,SERUM 7.1 g/dL 6.0-8.3 ALBUMIN 4.1 g/dL 3.4-5.0 ALKALINE PHOSPHATASE 71 U/L 45-117 TOTAL BILIRUBIN 0.4 mg/dL 0.2-1.0 ANION GAP 10 5-15 GLOBULIN, CALCULATED 3.0 g/dL A/G RATIO 1.4 ratio 1-1.8 LIPID PANEL WITH DIRECT MEASURED LDL - 06/12/16 10:25 TRIGLYCERIDES 105 mg/dL 20-170 CHOLESTEROL 115 mg/dL <201 HDL 56 mg/dL 40-60 LOW DENSITY LIPOPROTEIN, DIRECT 49 mg/dL <100 TSH WITH REFLEX TO FREE T4 - 06/12/16 10:25 TSH 3RD GENERATION 1.540 u[iU]/mL 0.350-4.900 GLUCOSE POCT - 06/20/16 07:37 GLUCOSE BY METER 121 mg/dL 70-115 CBC WITH DIFF - 02/17/17 11:12 WBC 7.63 10*3/uL 4.00-10.80 RBC 4.11 10*6/uL 4.20-5.40 HGB 11.5 g/dL 12.0-16.0 HCT 35.7 % 37.0-47.0 MCV 87 fL 81-99 MCH 28 pg 26.0-34.0 MCHC 32.2 g/dL 31.0-37.0 PLATELET COUNT 235 10*3/uL 150-400 RDWCV 13.7 % 11.5-14.5 DIFF TYPE AUTOMATED DIFF NEUTROPHIL % 69.3 % 36.0-66.0 LYMPHOCYTE % 23.3 % 24.0-44.0 MONOCYTE % 6.4 % 1.0-10.0 EOSINOPHIL % 0.1 % 0.0-6.0 BASOPHIL % 0.5 % 0.0-2.0 ABS. NEUTROPHILS 5.28 10*3/uL 1.55-7.13 ABS. LYMPHOCYTES 1.78 10*3/uL 1.00-4.80 ABS. MONOCYTES 0.49 10*3/uL 0.40-1.08 ABS. EOSINOPHILS 0.01 10*3/uL 0.00-0.65 ABS. BASOPHILS 0.04 10*3/uL 0.00-0.11 ABSOLUTE NUCLEATED RBC 0.00 10*3/uL 0.00 PERCENT NUCLEATED RBC 0.0 % 0.0 MPV 10.2 fL 9.4-12.3 RDW STANDARD DEVIATION 43.1 fL 36.4-46.3 GRANULOCYTE, IMMATURE, ABSOLUTE 0.0 10*3/uL 0.0-0.1 GRANULOCYTES, IMMATURE, PERCENT 0.4 % 0.0-0.5 COMPREHENSIVE METABOLIC PANEL - 02/17/17 11:12 POTASSIUM 3.8 mmol/L 3.5-5.1 CALCIUM 8.7 mg/dL 8.5-10.0 GLUCOSE 97 mg/dL 80-115 BUN 18 mg/dL 7-18 CREATININE 0.78 mg/dL 0.55-1.30 SODIUM 139 mmol/L 136-145 CHLORIDE 105 mmol/L 98-107 CO2 27 mmol/L 21-32 GFR ESTIMATED NOT AFR/AM >60 GFR ESTIMATED IF AFR/AM >60 ALT-SGPT 19 U/L 13-56 AST-SGOT 11 U/L 15-37 TOTAL PROTEIN,SERUM 6.8 g/dL 6.0-8.3 ALBUMIN 3.6 g/dL 3.4-5.0 ALKALINE PHOSPHATASE 84 U/L 45-117 TOTAL BILIRUBIN 0.5 mg/dL 0.2-1.0 ANION GAP 7 5-15 GLOBULIN, CALCULATED 3.2 g/dL A/G RATIO 1.1 ratio 1-1.8 LIPID PANEL WITH DIRECT MEASURED LDL - 02/17/17 11:12 TRIGLYCERIDES 94 mg/dL 20-170 CHOLESTEROL 111 mg/dL <201 HDL 50 mg/dL 40-60 LOW DENSITY LIPOPROTEIN, DIRECT 53 mg/dL <100 TSH WITH REFLEX TO FREE T4 - 02/17/17 11:12 TSH 3RD GENERATION 1.400 u[iU]/mL 0.350-4.900 HEMOGLOBIN A1C - 02/17/17 11:12 HEMOGLOBIN A1C 5.8 % <5.6 ESTIMATED AVERAGE GLUCOSE 120 mg/dL CBC WITH DIFF - 05/21/17 10:16 WBC 7.52 10*3/uL 4.00-10.80 RBC 4.38 10*6/uL 4.20-5.40 HGB 12.0 g/dL 12.0-16.0 HCT 39.0 % 37.0-47.0 MCV 89 fL 81-99 MCH 27 pg 26.0-34.0 MCHC 30.8 g/dL 31.0-37.0 PLATELET COUNT 261 10*3/uL 150-400 RDWCV 14.1 % 11.5-14.5 DIFF TYPE AUTOMATED DIFF NEUTROPHIL % 64.4 % 36.0-66.0 LYMPHOCYTE % 27.9 % 24.0-44.0 MONOCYTE % 6.3 % 1.0-10.0 EOSINOPHIL % 0.1 % 0.0-6.0 BASOPHIL % 0.5 % 0.0-2.0 ABS. NEUTROPHILS 4.84 10*3/uL 1.55-7.13 ABS. LYMPHOCYTES 2.10 10*3/uL 1.00-4.80 ABS. MONOCYTES 0.47 10*3/uL 0.40-1.08 ABS. EOSINOPHILS 0.01 10*3/uL 0.00-0.65 ABS. BASOPHILS 0.04 10*3/uL 0.00-0.11 ABSOLUTE NUCLEATED RBC 0.00 10*3/uL 0.00 PERCENT NUCLEATED RBC 0.0 % 0.0 MPV 10.1 fL 9.4-12.3 RDW STANDARD DEVIATION 46.0 fL 36.4-46.3 GRANULOCYTE, IMMATURE, ABSOLUTE 0.06 10*3/uL 0.00-0.10 GRANULOCYTES, IMMATURE, PERCENT 0.8 % 0.0-0.5 Encounters ACCT No. Visit Date/Time Discharge Status Pt. Type Provider Facility Loc./Unit Complaint [id number] 12/18/2016 00:00:00 12/18/2016 23:59:59 CLS Outpatient [facility] [id number] 11/05/2016 00:00:00 11/05/2016 23:59:59 CLS Outpatient [facility] [id number] 09/13/2016 07:37:03 09/13/2016 23:59:59 CLS Outpatient [facility] [id number] 08/15/2016 00:00:00 08/15/2016 23:59:59 CLS Outpatient [facility] [id number] 07/04/2016 09:52:19 07/04/2016 23:59:59 CLS Outpatient [facility] [id number] 07/02/2016 00:00:00 07/02/2016 23:59:59 CLS Outpatient [facility] [id number] 06/24/2016 00:00:00 06/24/2016 23:59:59 CLS Outpatient [facility] [id number] 06/12/2016 09:17:42 06/12/2016 23:59:59 [facility] [id number] 03/13/2016 09:49:43 03/13/2016 23:59:[facility] [id number] 12/28/2015 00:00:00 12/28/2015 23:59:59 CLS Outpatient [facility] [id number] 11/28/2015 00:00:00 11/28/2015 23:59:59 CLS Outpatient [facility] [id number] 12/06/2015 10:23:13 Document Registration [id number] 08/17/2015 14:29:28 Document Registration [id number] 07/24/2015 08:32:20 Document Registration [id number] 08/12/2017 14:26:41 08/12/2017 23:59:59 CLS Outpatient ELISAB[facility] S[facility] [place] [address] [id number] 07/23/2016 07:55:45 07/23/2016 23:59:59 CLS Outpatient ELISABETH S[facility]HU [facility] [place] [address] [id number] 01/23/2016 14:16:03 01/23/2016 23:59:59 CLS Outpatient ELISABETH SIDHU [facility] [place] [id number] 11/21/2015 20:15:58 11/22/2015 07:00:00 DIS Outpatient CAMI EARL [facility] [id number] 10/24/2015 07:58:51 10/24/2015 23:59:59 CLS Outpatient BANNERELISAB[facility] ALMAGUER [facility] [place] [id number] [id number] 08/31/2017 15:00:41 ACT Document Registration [id number] 08/21/2017 00:00:00 08/21/2017 23:59:59 CLS Outpatient [facility] [id number] 08/08/2017 00:00:00 08/08/2017 23:59:59 CLS Outpatient [facility] [id number] 07/14/2017 11:19:09 07/14/2017 23:59:59 CLS Outpatient [facility] [id number] 06/24/2017 00:00:00 06/24/2017 23:59:59 CLS Outpatient [facility] [id number] 06/24/2017 00:00:00 06/24/2017 23:59:59 CLS Outpatient [facility] [id number] 06/23/2017 09:14:02 06/23/2017 [facility]59:[id number]2017 00:00:00 06/09/2017 23:59:59 CLS Outpatient [facility] [id number] 06/05/2017 00:00:00 06/05/2017 23:59:59 CLS Outpatient [facility] [place] [facility] [id number] 06/04/2017 00:00:00 06/04/2017 23:59:59 CLS Outpatient [facility] [place] [facility] [id number] 05/26/2017 07:16:12 05/26/2017 23:59:59 [facility] [place] [facility] [id number] 05/08/2017 00:00:00 05/08/2017 23:59:59 CLS Outpatient [facility] [id number] 04/09/2017 00:00:00 04/09/2017 23:59:59 CLS Outpatient [facility] [id number] 03/17/2017 07:28:27 03/17/2017 23:59:59 CLS Outpatient [facility] [id number] 02/25/2017 00:00:00 02/25/2017 23:59:59 CLS Outpatient [facility] [id number] 02/17/2017 07:52:59 02/17/2017 23:59:59 CLS Outpatient [facility] [id number] 02/10/2017 00:00:00 02/10/2017 23:59:59 CLS Outpatient [facility] [place] [facility] [id number] 09/28/2015 00:00:00 09/28/2015 23:59:[address] [facility] [id number] 09/19/2015 00:00:00 09/19/2015 23:59:[address] [facility] [id number] 08/25/2015 00:00:00 08/25/2015 23:59:[address] [facility] [id number] 07/22/2017 08:51:39 Document Registration [id number] 07/17/2017 15:47:02 Document Registration [id number] 12/19/2016 14:42:19 Document Registration [id number] 11/05/2016 18:00:18 Document Registration [id number] 09/13/2016 07:37:03 Document Registration [id number] 08/16/2016 10:52:51 Document Registration [id number] 07/26/2016 15:51:44 Document Registration [id number] 06/19/2016 08:37:34 Document Registration [id number] 06/12/2016 09:17:42 Document Registration [id number] 03/13/2016 09:49:43 Document Registration [id number] 12/06/2015 10:23:13 Document Registration [id number] 09/19/2015 09:45:51 Document Registration [id number] 08/17/2015 14:29:28 Document Registration [id number] 07/07/2017 08:48:54 07/07/2017 23:59:00 DIS Outpatient MAY, [facility] FCRTST [id number] 06/02/2017 07:04:49 06/02/2017 23:59:00 DIS Outpatient MAY, [facility] FRDCCL [id number] 05/21/2017 10:11:20 05/21/2017 23:59:00 DIS Outpatient MAY, [facility] [id number] 02/17/2017 11:03:57 02/17/2017 23:59:00 DIS Outpatient MAY, [facility] [id number] 07/17/2016 07:40:59 07/17/2016 23:59:00 DIS Outpatient MAY, [facility] FMWRAD [id number] 06/20/2016 06:58:00 06/20/2016 09:10:00 DIS Inpatient MAY, [facility] FPHII [id number] 06/12/2016 10:20:37 06/12/2016 23:59:00 DIS Outpatient MAY, [facility] FSLLAB [id number] 03/13/2016 11:20:38 03/13/2016 23:59:00 DIS Outpatient MAY, [facility] FSLLAB [id number] 12/06/2015 11:45:00 12/06/2015 23:59:00 DIS Outpatient MAY, [facility] FSLLAB [id number] 08/09/2015 07:21:00 08/09/2015 10:21:00 DIS Inpatient MAY, [facility] FPHII [id number] 07/24/2015 09:30:00 07/24/2015 23:59:00 DIS Outpatient MAY, [facility] FSLLAB [id number] 04/20/2015 09:09:08 04/20/2015 23:59:00 DIS Outpatient MAY, [facility] FSLLAB [id number] 01/13/2015 08:44:20 01/13/2015 23:59:00 DIS Outpatient MAY, [facility] FSLLAB [id number] 09/21/2014 07:50:43 09/21/2014 23:59:00 DIS Outpatient MAY, [facility] FSLLAB [id number] 04/08/2014 10:37:34 04/08/2014 23:59:00 DIS Outpatient MAY, [facility] FSLLAB [id number] 12/14/2013 06:50:27 12/14/2013 23:59:00 [facility] [id number] 08/26/2013 16:57:53 08/26/2013 23:59:00 DIS Outpatient [facility] FMWRAD [id number] 08/25/2013 08:48:15 08/25/2013 23:59:00 DIS Outpatient [facility] FMWRM [id number] 09/08/2017 13:49:07 Document Registration
== END 2017-09-14 12:00 | disposition home or self-care (01) ==
LOC: ER 09:39
DX: K22.4 Dyskinesia of esophagus (principal); E78.00 Pure hypercholesterolemia, unspecified; I10 Essential (primary) hypertension; K21.9 Gastro-esophageal reflux disease without esophagitis; E11.9 Type 2 diabetes mellitus without complications; Z88.0 Allergy status to penicillin; Z88.6 Allergy status to analgesic agent
CPT/HCPCS: 36415; 71045; 80053; 83735; 83874; 84484; 85025; 85610; 85730; 93005; 93041